=== PATIENT | female | born 1990 | race Caucasian/White ===

== ENCOUNTER → 2023-11-16 07:57 | Outpatient (BNVA) | payer OTHER, SELFPAY | PROVIDERS: Family Provider Family Medicine; Visit Provider Nurse Practitioner Family | DX: J02.9 Acute pharyngitis, unspecified (principal) | CPT/HCPCS: 87880 ==

== ENCOUNTER → 2024-05-23 11:33 | Outpatient (BNVA) | payer OTHER, SELFPAY | PROVIDERS: Family Provider Family Medicine; Visit Provider Nurse Practitioner Women's Health | DX: Z12.4 Encounter for screening for malignant neoplasm of cervix (principal); Z00.00 Encounter for general adult medical examination without abnormal findings | CPT/HCPCS: 80053; 82306; 83036; 84443; 85025; 87624 ==

== ENCOUNTER → 2024-09-06 11:25 | Outpatient (BNVA) | payer OTHER, SELFPAY | PROVIDERS: PCP Family Medicine; Visit Provider Nurse Practitioner Women's Health | DX: O26.859 Spotting complicating pregnancy, unspecified trimester (principal) | CPT/HCPCS: 84702 ==

== ENCOUNTER → 2024-09-10 09:07 | Outpatient (BNVA) | payer OTHER, SELFPAY | PROVIDERS: PCP Family Medicine; Visit Provider Nurse Practitioner Women's Health | DX: Z34.90 Encounter for supervision of normal pregnancy, unspecified, unspecified trimester (principal) | CPT/HCPCS: 84702 ==

== ENCOUNTER → 2024-09-13 10:12 | Outpatient (BNVA) | payer OTHER, SELFPAY | PROVIDERS: PCP Family Medicine; Visit Provider Nurse Practitioner Women's Health | DX: O03.9 Complete or unspecified spontaneous abortion without complication (principal) | CPT/HCPCS: 84702; 86850; 86900 ==

== ENCOUNTER → 2024-10-25 12:58 | Outpatient (BNVA) | payer OTHER, SELFPAY | PROVIDERS: PCP Family Medicine; Visit Provider Nurse Practitioner Women's Health | DX: N91.2 Amenorrhea, unspecified (principal); Z32.01 Encounter for pregnancy test, result positive | CPT/HCPCS: 80503; 81025; 84702; 86850; 86870; 86900 ==

== ENCOUNTER 2024-11-06 03:29 | Emergency (ER) | payer OTHER, SELFPAY ==
[2024-11-06 03:33] VITALS: BP 107/60; PULSE 56; RESP 18; TEMP 36.5; O2SAT 100; BMI 14.4
--- OUTSIDE RECORDS SUMMARY | 2024-11-06 03:35 | XMS_ITS | Encounter Summary ---
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
--- OUTSIDE RECORDS SUMMARY | 2024-11-06 03:35 | XMS_ITS | Clinical Summary ---
Author Organization [facility] Address [address] [place] [address] Phone Care Team Providers Care Patient Relations Liaison Name Role Phone Unavailable Primary Care Provider Unavailabl e Immunizations Immunization Administration Dates Next Due (M-M-R II/PRIORIX)(12 MO UP) MEASLES, MUMPS AND RUBELLA VIRUS VACCINE, 0.5 ML IM/SUBCUT 09/20/1994,11/20/1990 Dt Dtp Dtap Vaccine 09/20/1994, 1,11/20/1990,03/09,1989,1989 HIB, Unspecified Formulation 02/02/1991 Hepatitis A Vaccine 11/07/2007 Hepatitis B Vaccine 02/25/1999,07/25/1998,1998 IPV/OPV 09/20/1994, 1,1989,09/27 Meningococcal A Conjugate Vaccine IM 06/01/2007 Social History Tobacco Use Types Packs/Day Years Used Date Smoking Tobacco: Never Assessed Comments Unknown Sex and Gender Information Value Date Recorded Sex Assigned at Not on file 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
--- NOTE | 2024-11-06 03:37 | USR_ITS ---
PROCEDURE INFORMATION: Exam: US First Trimester, Transabdominal Exam date and time: 11/06/2024 4:08 AM Age: 34 years old Clinical indication: complicated by abdominal or pelvic pain; Right lower quadrant; First trimester (<14 weeks 0 days); Gestational age or lmp: 9w; ; Additional info: Adnexal pain, early LABS AND CLINICAL REPORTS: Last menstrual period start date: Unknown TECHNIQUE: Imaging protocol: Real-time transabdominal obstetrical ultrasound of the maternal pelvis and a first trimester , less than 14 weeks 0 days, with image documentation. COMPARISON: No relevant prior studies available. FINDINGS: GESTATION: Gestation: Single intrauterine gestation. Yolk sac is regular and round in morphology. Embryo/ cardiac activity (BPM): 169 bpm Extra-embryonic membranes/Placenta: Unremarkable. No subchorionic bleed. Amniotic/Chorionic fluid: Amniotic and extra-amniotic fluid are normal for gestational age. BIOMETRY: Gestational age (AUA): Nine weeks 6 days MATERNAL: Uterus: Unremarkable. Cervix: Unremarkable. Endocervical canal is closed. Right ovary/adnexa: Right ovary appears normal and well perfused measuring 3.5 x 3.7 x 3.4 cm with 2.0 cm follicle. Left ovary/adnexa: Left ovary appears normal measuring 3.4 x 2.8 x 1.8 cm and is well-perfused. Follicles measure up to 1.5 cm. Intraperitoneal space: No intraperitoneal free fluid. US/US OB <= 14 weeks fetus [id number] IMPRESSION: Single intrauterine gestation. AUA 9 weeks 6 days. No suggestion of acute abnormality.
--- NOTE | 2024-11-06 03:43 | W.ED.ABDPA2 ---
HPI - Abdominal Pain General: Chief Complaint: Abdominal Pain Stated Complaint: Rt Side ABD Pain Time Seen by Provider: 11/06/24 03:32 History of Present Illness: 34-year-old female who presents emergency room with right lower quadrant abdominal pain that started a couple of hours ago and has become very severe. She is pale on presentation. She was recently diagnosed as being . She estimates she is about 7 to 8 weeks along. No vaginal bleeding. No vaginal discharge. No urinary symptoms. She does have some nausea associated with the pain. Related Data Home Medications ?Medication ?Instructions ?Recorded ?Confirmed vit 11-iron fum 28 mg 1 cap PO DAILY 10/25/24 10/25/24 iron-folic acid 1 mg-om3 200 mg capsule Previous Rx's ?Medication ?Instructions ?Recorded cefdinir 300 mg capsule 300 mg PO BID 10 days #20 caps 11/06/24 Allergies Allergy/AdvReac Type Severity Reaction Status Date / Time No Known Allergies Allergy Verified 10/25/24 13:04 Review of Systems Narrative: Constitutional symptoms: Negative except as documented in HPI. Skin symptoms: Negative except as documented in HPI. Eye symptoms: Negative except as documented in HPI. ENMT symptoms: Negative except as documented in HPI. Respiratory symptoms: Negative except as documented in HPI. Cardiovascular symptoms: Negative except as documented in HPI. Gastrointestinal symptoms: Negative except as documented in HPI. Genitourinary symptoms: Negative except as documented in HPI. Musculoskeletal symptoms: Negative except as documented in HPI. Neurologic symptoms: Negative except as documented in HPI. Psychiatric symptoms: Negative except as documented in HPI. Endocrine symptoms: Negative except as documented in HPI. [facility] ED PFSH: Medical History (Updated 11/06/24 @ 04:25 by Beth Marcano MD) Miscarriage No pertinent past medical history delivery delivered Family History Grandmother Diabetes Stroke Denies family history of Colon cancer Ovarian cancer Heart disease Breast cancer Uterine cancer Thyroid disease Social History Smoking and tobacco/nicotine status: never used tobacco/nicotine Physical Exam Narrative: EXAM NARRATIVE: General: Alert, no acute distress. Skin: Warm, dry. Pale Head: Normocephalic, atraumatic. Neck: Supple, trachea midline. Eye: Extraocular movements are intact. Ears, nose, mouth and throat: mucosa moist. Cardiovascular: Regular, Normal peripheral perfusion. Respiratory: Lungs are clear to auscultation, respirations are non-labored, breath sounds are equal, Symmetrical chest wall expansion. Gastrointestinal: Soft, very tender in the right lower quadrant, Non distended Musculoskeletal: Normal ROM, no deformity. Neurological: Alert and oriented, No focal neurological deficit observed. Psychiatric: Cooperative, appropriate mood & affect. Course Vital Signs: Vital signs: Vital Signs Temperature 97.7 F 11/06/24 03:33 Pulse Rate 74 11/06/24 05:07 Respiratory Rate 18 11/06/24 03:33 Blood Pressure 98/60 11/06/24 05:07 Pulse Oximetry 98 11/06/24 05:07 Oxygen Delivery Me thod Room Air 11/06/24 03:33 MDM - Abdominal Pain Medical Decision Making Medical decision making: Differential diagnosis for this patient with abdominal pain including but not limited to and based on the above HPI, review of systems and physical exam: Ectopic . Urinary tract infection. Appendicitis. Cholecystitis. Dehydration. Renal failure. Gastroenteritis. Orders placed to evaluate differential diagnosis based on the above differential, HPI and physical exam Lab Review: Laboratory results were reviewed and interpreted by myself the emergency room physician. Mild leukocytosis. No anemia. Urinalysis positive for infection. 21-50 whites with 1+ bacteria. No renal failure. ultrasound: Single intrauterine gestation. 9 weeks 6 days. No acute abnormalities. No evidence of ectopic . Heart rate in the 160s. This was reviewed and interpreted by myself the emergency room physician. I also reviewed the radiology report. I reviewed the patient's medical record. Reexamination: Patient has remained stable. Pain has improved somewhat. No increased work of breathing. No altered mental status. Blood pressures are around 100 but this appears to be her baseline looking back at previous vital signs in clinic recently. Assessment and plan: Urinary tract infection affecting ?1 L normal saline bolus and IV cefepime in the emergency room - Discharged home - Discussed findings and plan with patient. Answered any questions. - All laboratory values were reviewed and interpreted personally by myself, the ER physician - All imaging was reviewed and interpreted personally by myself, the ER physician. - Evaluation and treatment of this problem were appropriate in the emergency setting Lab Data 11/06/24 03:45 11/06/24 04:37 Labs/Radiology: Radiology Impressions Ultrasound 11/06/24 03:37 IMPRESSION: Single intrauterine gestation. AUA 9 weeks 6 days. No suggestion of acute abnormality. Laboratory Results WBC 13.49 10^3/uL (3.29-11.43) H 11/06/24 03:45 RBC 3.77 10^6/uL (3.85-5.65) L 11/06/24 03:45 Hgb 12.10 g/dL (11.27-16.99) 11/06/24 03:45 Hct 35.4 % (36-47) L 11/06/24 03:45 MCV 93.9 fl (85-98) 11/06/24 03:45 MCH 32.1 pg (27-33) 11/06/24 03:45 MCHC 34.2 g/dL (30-55) 11/06/24 03:45 RDW 12.9 % (12.1-15.1) 11/06/24 03:45 Plt Count 273 10^3/cmm (157-399) 11/06/24 03:45 MPV 10.1 fL (7.4-10.4) 11/06/24 03:45 Neut % (Auto) 81.3 % 11/06/24 03:45 Lymph % (Auto) 14.1 % 11/06/24 03:45 [place] [place] % (Auto) 3.9 % 11/06/24 03:45 Eos % (Auto) 0.3 % 11/06/24 03:45 Baso % (Auto) 0.1 % 11/06/24 03:45 Neut # (Auto) 10.96 10^3/uL (1.8-7.7) H 11/06/24 03:45 Lymph # (Auto) 1.9 10^3/uL (0.8-4.8) 11/06/24 03:45 [facility] [place] # (Auto) 0.5 10^3/uL (0.2-0.9) 11/06/24 03:45 Eos # (Auto) 0.0 10^3/uL (0.0-0.8) 11/06/24 03:45 Baso # (Auto) 0.0 10^3/uL (0.0-0.1) 11/06/24 03:45 Nucleated RBC % (auto) 0 % 11/06/24 03:45 Nucleated RBCs # 0.0 /100WBC 11/06/24 03:45 Sodium 136 mmol/L (136-145) 11/06/24 04:37 Potassium Cancelled 11/06/24 03:45 Chloride 102 mmol/L (98-107) 11/06/24 04:37 Carbon Dioxide Cancelled 11/06/24 03:45 Anion Gap Cancelled 11/06/24 03:45 BUN 8 mg/dL (6-20) 11/06/24 04:37 Creatinine 0.5 mg/dL (0.5-0.9) 11/06/24 04:37 GFR Calculation Cancelled 11/06/24 03:45 Glucose Cancelled 11/06/24 03:45 Calculated Osmolality Cancelled 11/06/24 03:45 Calcium 9.0 mg/dL (8.5-10.5) 11/06/24 04:37 Total Bilirubin 0.4 mg/dL (0.15-1.2) 11/06/24 04:37 AST Cancelled 11/06/24 03:45 ALT 11 U/L (0-33) 11/06/24 04:37 Alkaline Phosphatase 46 U/L (35-105) 11/06/24 04:37 Total Protein 6.7 g/dL (6.6-8.7) 11/06/24 04:37 Albumin 4.2 g/dL (3.5-5.2) 11/06/24 04:37 Globulin 2.5 g/dL (1.3-4.6) 11/06/24 04:37 Ser , Semi-Qnt 425885.00 mIU/mL 11/06/24 04:37 Urine Color Yellow (Yellow) 11/06/24 03:48 Urine Appearance Clear (CLEAR) 11/06/24 03:48 Urine pH 5.5 (5-7) 11/06/24 03:48 Ur Specific Arthur 1.028 (1.005-1.030) 11/06/24 03:48 Urine Protein Trace (Negative) A 11/06/24 03:48 Urine Glucose (UA) 2+ (Normal) H 11/06/24 03:48 Urine Ketones 3+ (Negative) H 11/06/24 03:48 Urine Blood Negative (Negative) 11/06/24 03:48 Urine Nitrate Negative (Negative) 11/06/24 03:48 Urine Bilirubin Negative (Negative) 11/06/24 03:48 Urine Urobilinogen 1.0 mg/dL (Negative) 11/06/24 03:48 Ur Leukocyte Esterase 1+ (Negative) A 11/06/24 03:48 Urine RBC 0-2 /hpf (0-2) 11/06/24 03:48 Urine WBC 21-50 /hpf (0-5) H 11/06/24 03:48 Ur Squamous Epith Cells 6-10 /hpf (0-5) 11/06/24 03:48 Amorphous Sediment Not Reportable 11/06/24 03:48 Urine Bacteria 1+ /hpf (NONE) H 11/06/24 03:48 Hyaline Casts 2.46 /lpf 11/06/24 03:48 Blood Type A Negative 11/06/24 04:37 Rho(D) Type Rh negative 11/06/24 04:37 All radiology interpretation(s) finalized by discharge Discharge Plan Discharge Patient Disposition: Home Clinical Impression: Urinary tract infection affecting Condition: Stable Prescriptions: New cefdinir 300 mg capsule 300 mg PO BID 10 Days Qty: 20 0RF No Action PNV 11-iron fum-folic acid-om3 28 mg iron-1 mg -200 mg capsule 1 cap PO DAILY Discharge Orders: Discharge ED (Routine); Ordered 11/06/24 Ordered By: Beth Marcano Referrals: Stacia Pelayo DO [Primary Care Provider, Family Practice] Discharge Diet: Usual diet Discharge Activity: Increase activity as tolerated Patient Instructions: Urinary Tract Infection in (ED), Opioid Safety, Pain Management, Patient Portal & [place] Instructions Activity Restrictions/Additional Instructions: Thank you for choosing [facility] for your healthcare needs today. You have been screened and evaluated and felt safe for discharge. Health conditions do change or evolve sometimes and as such it is important that you follow up with your Primary Doctor to be re checked, 3-5 days is a general good time frame for follow up. 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
[2024-11-06 03:59] LABS: Glucose Urine UA 2+ (Normal); Nitrate Urine Negative (Negative); Specific Gravity, Urine 1.028 (1.005-1.030)
[2024-11-06 04:00] LABS: Hematocrit 35.4 % (36-47); Hemoglobin 12.10 g/dL (11.27-16.99); Mean Corpuscular HGB Conc 34.2 g/dL (30-55); Mean Corpuscular Hemoglobin 32.1 pg (27-33); Mean Corpuscular Volume 93.9 fl (85-98); Nucleated Red Blood Cells % 0 %; Platelet Count 273 10^3/cmm (157-399); Red Blood Count 3.77 10^6/uL (3.85-5.65); White Blood Count 13.49 10^3/uL (3.29-11.43)
[2024-11-06] MEDS: cefTRIAXone 1,000 mg SDV 1000 MG IVP (04:37)
[2024-11-06 05:07] VITALS: BP 98/60; PULSE 74; O2SAT 98
[2024-11-06 05:16] LABS: Alanine Aminotransferase 11 U/L (0-33); Albumin Level 4.2 g/dL (3.5-5.2); Alkaline Phosphatase 46 U/L (35-105); Blood Urea Nitrogen 8 mg/dL (6-20); Calcium 9.0 mg/dL (8.5-10.5); Carbon Dioxide 21 mmol/L (22-29); Chloride 102 mmol/L (98-107); Creatinine Clr Calc Pharmacy 106.8298; Globulin 2.5 g/dL (1.3-4.6); Glucose 123 mg/dL (65-115); Osmolality Calculated 282 mOsm/kg (285-295); Sodium 136 mmol/L (136-145); Total Protein 6.7 g/dL (6.6-8.7)
[2024-11-06 05:20] LABS: Anion Gap 17.2 (5-19); Aspartate Amino Transferase 17 U/L (0-32); Potassium 4.2 mmol/L (3.5-5.1)
[2024-11-06 05:29] VITALS: BP 103/62; PULSE 70; O2SAT 99
== END 2024-11-06 05:30 | disposition home or self-care (01) ==
PROVIDERS: Emergency Provider Emergency Medicine; PCP Family Medicine
DX: O23.41 Unspecified infection of urinary tract in pregnancy, first trimester (principal); N39.0 Urinary tract infection, site not specified; Z3A.09 9 weeks gestation of pregnancy
CPT/HCPCS: 76801; 80053; 81001; 84702; 85025; 86900; 87086; 96374; 99284; J0696; J7030

== ENCOUNTER 2024-11-12 16:48 | Outpatient (CLI) | payer OTHER, SELFPAY ==
--- NOTE | 2024-11-12 17:00 | US_ITS ---
WS: [id number] EARLY OBSTETRICAL ULTRASOUND (<14 WEEKS). HISTORY: Z34.90 - Encounter for supervision of normal , u... COMPARISON: 11/06/2024 Single intrauterine gestational sac is identified. Cardiac activity at 169 BPM. [place]-rump length measures 3.1 cm which corresponds to a gestation of 10w0d. Normal-appearing yolk sac and amnion demonstrated. No subchorionic hemorrhage. No free fluid. RIGHT ovary measures 3.7 x 3.6 x 2.8 cm. LEFT ovary measures 3.9 x 1.9 x 3.7 cm. RIGHT ovary contains a corpus luteum of . US/US OB <= 14 weeks fetus [id number] IMPRESSION: 1. Single intrauterine gestation of 10w0d with an EDC of 06/10/2025. Appropria te interval growth since the prior ultrasound. 2. Normal cardiac activity.
== END 2024-11-12 16:49 | disposition home or self-care (01) ==
PROVIDERS: PCP Family Medicine; Visit Provider Nurse Practitioner Women's Health
DX: Z34.91 Encounter for supervision of normal pregnancy, unspecified, first trimester (principal); Z3A.10 10 weeks gestation of pregnancy
CPT/HCPCS: 76801

== ENCOUNTER → 2024-11-22 16:03 | Outpatient (BNVA) | payer OTHER, SELFPAY | PROVIDERS: PCP Family Medicine; Visit Provider Nurse Practitioner Women's Health | DX: Z34.81 Encounter for supervision of other normal pregnancy, first trimester (principal) | CPT/HCPCS: 80307; 84315; 84443; 86592; 86762; 86803; 87086; 87340; 87491; 87591; 87661; 87806 ==

== ENCOUNTER → 2024-11-26 10:34 | Outpatient (BNVA) | payer OTHER, SELFPAY | PROVIDERS: PCP Family Medicine; Visit Provider Obstetrics & Gynecology | DX: Z34.81 Encounter for supervision of other normal pregnancy, first trimester (principal) | CPT/HCPCS: 84315 ==

== ENCOUNTER → 2024-12-25 08:49 | Outpatient (BNVA) | payer OTHER, SELFPAY | PROVIDERS: PCP Family Medicine; Visit Provider Nurse Practitioner Women's Health | DX: Z32.01 Encounter for pregnancy test, result positive (principal); O26.899 Other specified pregnancy related conditions, unspecified trimester; Z67.91 Unspecified blood type, Rh negative | CPT/HCPCS: 84315; 86850; 86900 ==

== ENCOUNTER → 2025-01-28 11:12 | Outpatient (BNVA) | payer OTHER, SELFPAY | PROVIDERS: PCP Family Medicine; Visit Provider Obstetrics & Gynecology | DX: O26.899 Other specified pregnancy related conditions, unspecified trimester (principal); Z67.91 Unspecified blood type, Rh negative; Z34.90 Encounter for supervision of normal pregnancy, unspecified, unspecified trimester | CPT/HCPCS: 84315 ==